=== PATIENT | female | born 1985 ===

== ENCOUNTER 2019-02-01 23:44 | Emergency (ER) | payer SELFPAY ==
[2019-02-02] VITALS: O2SAT 99
[2019-02-02] MEDS ORDERED: Albuterol-Ipratrop 3 mg / 0.5 (3 ml) UD INH STA (00:34)
--- NOTE | 2019-02-02 00:36 | C.PDOC ---
History Of Present Illness 33 year old female presents to the ED c/o 2 days history of worsening epigastric abdominal pain, vomit, cough and weakness. Patient reports having a fever at home, has been unable to tolerate food or drinks. Patient has no known medical history. Patient denies diarrhea, rash, dysuria, CP, SOB, recent travel, sick contacts PMD: None <Mariana Stone - Last Filed: 02/02/19 01:17> History Per: Patient History/Exam Limitations: no limitations Onset/Duration Of Symptoms: Days (2) Current Symptoms Are (Timing): Still Present Location Of Pain/Discomfort: Epigastric Quality Of Discomfort: denies: Dull, Aching, "Pain" Associated Symptoms: Fever, Nausea, Vomiting, Loss Of Appetite. denies: Diarrhea, Constipation, Urinary Symptoms Recent travel outside of the [place]: No Additional History Per: Patient Abnormal Vaginal Bleeding: No <Mariana Stone - Last Filed: 02/02/19 01:17> <Tram Valles - Last Filed: 02/02/19 04:44> Time Seen by Provider: 02/02/19 00:04 Chief Complaint (Nursing): Abdominal Pain Past Medical History Reviewed: Historical Data, Nursing Documentation, Vital Signs Vital Signs: Last Vital Signs Temp 98.3 F 02/01/19 23:57 Pulse 101 H 02/01/19 23:57 Resp 20 02/01/19 23:57 BP 116/62 02/01/19 23:57 Pulse Ox 99 02/01/19 23:57 - Medical History PMH: No Chronic Diseases Surgical History: No Surg Hx Family History: States: Unknown Family Hx - Social History Hx Alcohol Use: No Hx Substance Use: No - Immunization History Hx Tetanus Toxoid Vaccination: No Hx Influenza Vaccination: Yes Hx Pneumococcal Vaccination: No <Mariana Stone - Last Filed: 02/02/19 01:17> Vital Signs: Last Vital Signs Temp 98.3 F 02/01/19 23:57 Pulse 101 H 02/01/19 23:57 Resp 20 02/01/19 23:57 BP 116/62 02/01/19 23:57 Pulse Ox 99 02/02/19 01:17 <Tram Valles - Last Filed: 02/02/19 04:44> Review Of Systems Constitutional: Positive for: Fever, Weakness, Malaise. Negative for: Chills ENT: Negative for: Nose Discharge, Nose Congestion, Throat Pain Cardiovascular: Negative for: Chest Pain Respiratory: Positive for: Cough. Negative for: Shortness of Breath, Sputum, Wheezing Gastrointestinal: Positive for: Nausea, Vomiting, Abdominal Pain. Negative for: Diarrhea Genitourinary: Negative for: Dysuria Musculoskeletal: Negative for: Back Pain Skin: Negative for: Rash Neurological: Negative for: Weakness, Numbness, Headache <Mariana Stone - Last Filed: 02/02/19 01:17> Physical Exam - Physical Exam Appears: Non-toxic, No Acute Distress, Other (weak ) Skin: Normal Color, Warm, Dry, Other (poor skin turgor) Head: Atraumatic, Normacephalic Eye(s): bilateral: Normal Inspection, PERRL, EOMI Oral Mucosa: Dry Throat: Normal, No Erythema, No Exudate Neck: Normal ROM, Supple Chest: Symmetrical Cardiovascular: Rhythm Regular Respiratory: No Rales, Rhonchi (bilateral, worse on the left), No Wheezing Gastrointestinal/Abdominal: Soft, Tenderness (epigastric), No Guarding, No Rebound Back: No CVA Tenderness Extremity: Normal ROM, No Tenderness, No Swelling Neurological/Psych: Oriented x3, Normal Speech, Normal Cognition Gait: Steady <Mariana Stone Blitsy Last Filed: 02/02/19 01:17> ED Course And Treatment O2 Sat by Pulse Oximetry: 99 (ON RA) Pulse Ox Interpretation: Normal <Mariana Stone - Last Filed: 02/02/19 01:17> - Laboratory Results Result Diagrams: 02/02/19 01:30 02/02/19 01:30 Lab Results: Total Bilirubin 0.5 mg/dL (0.2-1.3) 02/02/19 01:30 AST 29 U/L (14-36) 02/02/19 01:30 ALT 16 U/L (9-52) 02/02/19 01:30 Alkaline Phosphatase 64 U/L (38-126) 02/02/19 01:30 Total Protein 7.8 g/dL (6.3-8.3) 02/02/19 01:30 Albumin 4.4 g/dL (3.5-5.0) 02/02/19 01:30 Globulin 3.4 gm/dL (2.2-3.9) 02/02/19 01:30 Albumin/Globulin Ratio 1.3 (1.0-2.1) 02/02/19 01:30 Urine Color Yellow (YELLOW) 02/02/19 01:30 Urine Clarity Hazy (Clear) 02/02/19 01:30 Urine pH 7.0 (5.0-8.0) 02/02/19 01:30 Ur Specific [place] 1.024 (1.003-1.030) 02/02/19 01:30 Urine Protein 2+ mg/dL (NEGATIVE) H 02/02/19 01:30 Urine Glucose (UA) Normal mg/dL (Normal) 02/02/19 01:30 Urine Ketones 1+ mg/dL (NEGATIVE) H 02/02/19 01:30 Urine Blood Negative (NEGATIVE) 02/02/19 01:30 Urine Nitrate Negative (NEGATIVE) 02/02/19 01:30 Urine Bilirubin 1+ (NEGATIVE) H 02/02/19 01:30 Urine Urobilinogen Normal mg/dL (0.2-1.0) 02/02/19 01:30 Ur Leukocyte Esterase Neg Andres/uL (Negative) 02/02/19 01:30 Urine WBC (Auto) 1 /hpf (0-5) 02/02/19 01:30 Urine RBC (Auto) 1 /hpf (0-3) 02/02/19 01:30 Ur Squamous Epith Cells 2 /hpf (0-5) 02/02/19 01:30 Urine Bacteria Rare (<OCC) 02/02/19 01:30 Beta HCG, Quant 15220.00 mIU/ML 02/02/19 01:30 Pulse Ox Interpretation: Normal - CT Scan/US Pelvic US Other Rad Studies (CT/US): Read By Radiologist, Radiology Report Reviewed CT/US Interpretation: irst trimester ultrasound. Indication: Pelvic pain. Technique: Real-time ultrasound images were obtained. Findings: Single intrauterine gestational sac measuring 1.8 cm which corresponds to an estimated gestational age of 6 weeks and 2 days. The pole measures 0.61 cm which corresponds to an estimated gestational age of 6 weeks and 3 days. heart rate 137 beats per minute. Normal ovaries. Subchorionic hemorrhage measuring 2.8 cm. Impression: Single, live intrauterine gestation. Subchorionic hemorrhage. . Electronically signed on Feb 02, 2019 4:28:44 AM EDT by: Kennedi Garcia M.D., Certified by ABR, MSK, Neuroradiology Reevaluation Time: 04:41 Reassessment Condition: Improved <HaiTram - Last Filed: 02/02/19 04:44> Medical Decision Making Medical Decision Making: Impression: Work up for influenza vs pneumonia Plan: * Labs * CXR * Duoneb * Toradol 30 mg IVP * Zofran 4 mg IVP * Influenza A B * UA Reassess : <Mariana Stone - Last Filed: 02/02/19 01:17> Disposition <Mariana Stone - Last Filed: 02/02/19 01:17> Counseled Patient/Family Regarding: Studies Performed, Diagnosis, Need For Followup, Rx Given - Disposition Disposition Time: 01:00 <Tram Valles - Last Filed: 02/02/19 04:44> - Disposition Referrals: [facility] [Outside] [facility] [Outside] Disposition: HOME/ ROUTINE Condition: FAIR Additional Instructions: Por favor regrese si los sntomas recurren Prescriptions: Metoclopramide [Reglan] 1 tab PO TID PRN #25 tab PRN Reason: Nausea/Vomiting Instructions: Morning Sickness (DC), Hyperemesis Gravidarum, - The Second Month Forms: [employer] (Syriac) Print Language: URDU - Clinical Impression Clinical Impression: Abdominal pain during , Subchorionic hemorrhage - Scribe Statement The provider has reviewed the documentation as recorded by the Scribe Ck Amato All medical record entries made by the Scribe were at my direction and personally dictated by me. I have reviewed the chart and agree that the record accurately reflects my personal performance of the history, physical exam, medical decision making, and the department course for this patient. I have also personally directed, reviewed, and agree with the discharge instructions and disposition. <Mariana Stone - Last Filed: 02/02/19 01:17>
[2019-02-02] MEDS ORDERED: Sodium Chloride 0.9% 1,000 ML IV ONE (01:00)
[2019-02-02] MEDS ORDERED: Albuterol-Ipratrop 3 mg / 0.5 (3 ml) UD ONE (01:00)
[2019-02-02] MEDS ORDERED: Sodium Chloride 0.9% 1,000 ML ONE (01:15)
[2019-02-02 01:36] LABS: BASO % 0.4 % (0.0-2.0); EOS # 0.1 K/uL (0.0-0.7); EOS % 0.8 % (0.0-4.0); HEMOGLOBIN 12.3 g/dL (11.0-16.0); LYMPH # 0.9 K/uL (1.0-4.3); LYMPH % 11.3 % (20.0-40.0); MEAN CELL VOLUME 89.3 fL (81.0-99.0); MEAN CORPUSCULAR HGB CONC 33.5 g/dL (33.0-37.0); MEAN PLATELET VOLUME 9.9 fL (7.2-11.7); MONO # 0.5 K/uL (0.0-0.8); MONO % 6.1 % (0.0-10.0); NEUT # 6.4 K/uL (1.8-7.0); NEUT % 81.4 % (50.0-75.0); RBC 4.1 Mil/uL (3.80-5.20); RED CELL DISTRIBUTION WIDTH 13.6 % (11.5-14.5); WHITE BLOOD COUNT 7.9 K/uL (4.8-10.8)
[2019-02-02 01:48] LABS: SQUAMOUS EPITHIAL 2 /hpf (0-5); URINE BACTERIA RARE (<OCC); URINE BILIRUBIN 1+ (NEGATIVE); URINE BLOOD NEGATIVE (NEGATIVE); URINE CLARITY Hazy (Clear); URINE COLOR Yellow (YELLOW); URINE GLUCOSE (UA) NORMAL (Normal); URINE LEUKOCYTE ESTERASE NEG Leu/uL (Negative); URINE PROTEIN 2+ mg/dL (NEGATIVE); URINE UROBILINOGEN NORMAL mg/dL (0.2-1.0)
[2019-02-02 01:55] LABS: ALB/GLOB RATIO 1.3 (1.0-2.1); ALBUMIN 4.4 g/dL (3.5-5.0); ALT/SGPT 16 U/L (9-52); AST/SGOT 29 U/L (14-36); BLOOD UREA NITROGEN 8 mg/dL (7-17); CALCIUM 9.5 mg/dl (8.6-10.4); GFR NON-AFRICAN AMERICAN > 60
[2019-02-02 05:45] VITALS: BP 103/68; PULSE 86; RESP 18; TEMP 98
--- NOTE | 2019-02-02 13:46 | US ---
Date of service: 02/02/2019 PROCEDURE: First trimester ultrasound HISTORY: pelvic pain, hcg 55,000 COMPARISON: None TECHNIQUE: Standard protocol for this study/examination. FINDINGS: LMP: 12/26/2018 Prior examinations from the current : None. TECHNIQUE: Real-time 2D imaging, duplex and color Doppler. FINDINGS: Cardiac activity: Present Rate: 137 BPM Measurements: [place] rump length: 0.61 cm Gestational age based on CRL 6 weeks 3 days Gestational age 6 weeks 2 days based on gestational sac measurement 1.82 cm Gestational age derived from LMP: 5 weeks 3 days TRINY based on LMP: 10/02/2019 TRINY based on biometry: 09/25/2019 Gestational concordance noted Yolk sac identified Cervix: No Cervical abnormalities: Negative examination for cervical dilatation or effacement. Closed cervix measuring 3.38 cm Subchorionic hemorrhage: Subchorionic focus resides between the gestational sac and the fundus measures 0.8 x 2.7 x 2.8 cm. UTERUS: 6.1 x 5.9 x 10.4 cm. ADNEXA: Right: 1.6 x 2.4 x 2.3 cm. Normal Doppler arterial waveform documented. Left: 2.3 x 2.4 x 2.9 cm. Normal Doppler arterial waveform documented Fluid in the cul-de-sac: None IMPRESSION: Six weeks 3 days live intrauterine gestation. Gestational concordance documented. Solitary focus of subchorionic hemorrhage. Concordant findings (preliminary report) provided by [employer] [facility].
== END 2019-02-02 04:30 | disposition home or self-care (01) ==
LOC: C.ER 23:44
DX: O26.891 Other specified pregnancy related conditions, first trimester (principal); R10.13 Epigastric pain; O20.9 Hemorrhage in early pregnancy, unspecified; Z3A.01 Less than 8 weeks gestation of pregnancy
CPT/HCPCS: 76805; 76817; 80053; 81001; 81025; 84702; 85025; 86308; 87804; 96374; 99284; J2405; J7030